=== PATIENT | female | born 1960 | race Caucasian/White ===

== ENCOUNTER 2018-09-03 12:49 | Day surgery (SDC) | payer OTHER ==
[~2018-09-03] VITALS: Ht 154.9 cm; Wt 65.3 kg
[~2018-09-03 12:49] MED LIST: ABILIFY10 MG PO; METFORMIN HCL1000 M1 PO; NICODERM CQ1 EAC1 TD; TRAZODONE HCL150 MG PO
--- NOTE | 2018-09-03 14:11 | NUR ---
09/03/18 1411 Jessica Villalta 89 PT ARRIVED IN PACU SLEEPY WITH NO C/O'S. ABD SOFT.
--- NOTE | 2018-09-05 09:22 | OR ---
[facility] [address] [place], [place] [address] Signed DATE OF OPERATION: 09/03/2018 SURGEON: Eusebia Bowen MD PREOPERATIVE DIAGNOSIS: Colon screening. POSTOPERATIVE DIAGNOSIS: Polyps x2 at 15 cm. PROCEDURE: Total colonoscopy to cecum with cold morcellation polypectomy x1 and cold snare polypectomy x1. ANESTHESIA: Intravenous sedation, fentanyl 100 mcg, Versed 6 mg. INDICATION: This 58-year-old white woman is a patient Dr. Rodriguez and is referred for screening colonoscopy. She has not had colonoscopy in the past. She is having no bleeding, diarrhea, or constipation. She does note a fair amount of flatulence and attributes this to lactose intolerance. She has no family history of colon cancer. She is admitted at this time to undergo colonoscopy. She understands the risks of bleeding, infection, and perforation. FINDINGS: The prep was good. Complete colonoscopy was undertaken to the cecum without problem. There were two polyps at 15 cm one sessile and about 8 mm in size, the other 4 mm in size. The larger excised with cold snare polypectomy technique, the smaller with cold morcellation technique. The remaining colon was normal. PROCEDURE IN DETAIL: The patient was brought to the endoscopy suite and placed in lateral decubitus position, given intravenous sedation to a point of slurred speech and nystagmus. Digital rectal examination was normal. An Olympus video colonoscope was passed in the rectum and manipulated throughout the colon ultimately intubating the cecum itself. The ileocecal valve and appendiceal orifice were normal. The scope was withdrawn from that point and examination undertaken showed no sign of abnormality until approximately 15 cm from the anal verge where rather Electronically Signed By: EUSEBIA BOWEN MD 09/05/18 0922 PATIENT NAME: CAROLINA COLMENARES OPERATIVE REPORT DATE OF : 64 REPORT #: [id number] PHYSICIAN: EUSEBIA BOWEN MD PCP: BLAISE RODRIGUEZ DO REPORT IS CONFIDENTIAL AND NOT TO BE RELEASED WITHOUT AUTHORIZATION [facility] [address] [place], [place] [address] Signed smooth sessile 8 mm polyp was noted. This was excised with cold snare polypectomy technique. Complete excision was accomplished without untoward bleeding. In the same general region at about 15 cm, there was another small polyp, probably hyperplastic. This was excised with cold morcellation technique. Further withdrawal of scope showed no other abnormality. Retroflexed view of the rectum was normal as well. The scope was removed and the patient was taken to recovery room in good condition. CONCLUDING DIAGNOSIS: Polyps x2 at 15 cm, both excised completely. PLAN: Recommend repeat colonoscopy in 5 years if either or both of the polyps has adenomatous features. If both are hyperplastic, can extend repeat colonoscopy to 10 years or sooner if symptoms should develop. MD MIRIAN Mendez/GWENDOLYN /[id number] cc: Blaise Rodriguez DO Copies: BLAISE RODRIGUEZ DO ~ Electronically Signed By: EUSEBIA BOWEN MD 03/01/17 922 PATIENT NAME: CAROLINA COLMENARES OPERATIVE REPORT DATE OF : 64 REPORT #: [id number] PHYSICIAN: EUSEBIA BOWEN MD PCP: BLAISE RODRIGUEZ DO REPORT IS CONFIDENTIAL AND NOT TO BE RELEASED WITHOUT AUTHORIZATION
== END 2018-09-03 14:50 | disposition home or self-care (01) ==
LOC: OPS 12:49 → DS 14:00 → OPS 14:00
PROVIDERS: Surgery
PROC: 0DBE8ZZ Excision of Large Intestine, Via Natural or Artificial Opening Endoscopic (ICD-10-PCS; 2018-09-03)
PROC: 0DBE8ZZ Excision of Large Intestine, Via Natural or Artificial Opening Endoscopic (ICD-10-PCS; principal; 2018-09-03 14:00)
DX: Z12.11 Encounter for screening for malignant neoplasm of colon (principal); K63.5 Polyp of colon; F32.9 Major depressive disorder, single episode, unspecified; G47.30 Sleep apnea, unspecified; F17.210 Nicotine dependence, cigarettes, uncomplicated; Z79.84 Long term (current) use of oral hypoglycemic drugs; Z79.899 Other long term (current) drug therapy
CPT/HCPCS: 99153; G0500; J2250; J3010; J7120

== ENCOUNTER 2023-01-12 16:48 | Emergency (ER) | payer OTHER ==
[~2023-01-12] VITALS: Ht 154.9 cm; Wt 56.5 kg
--- OUTSIDE RECORDS SUMMARY | ~2023-01-12 | XMS | Continuity of Care Document ---
Demographics + + + | Address | [address] | | | [place] [address] | + + + | Preferred Language | Unknown | + + + | Marital Status | Legally | + + + | Tenriism Affiliation | Unknown | + + + | Race | White | + + + | Ethnic Group | Unknown | + + + Author + + + | Author | [place] | + + + | Organization | [place] | + + + | Address | [address] | | | [place] [address] | + + + | Phone | | + + + Care Team Providers + + + + | Care Waiter/Waitress Dining Car Name | Role | Phone | + + + + Unavailable | Unavailable | + + + + Allergies and Intolerances + + + + + + | date | description | facility | reaction | severity | + + + + + + | (no date) | No Known | [facility] | (no reaction) | (no severity) | | | Allergies | | | | + + + + + + Encounters No information. Functional Status No information. Immunizations No information. Medications No information. Problems + + + + | date | description | facility | + + + + | 2022-10-27 09:54 | NICOTINE DEPENDENCE, | [facility] | | | UNSPECIFIED, UNCOMPLICATED | | + + + + | 2022-10-27 15:21 | NICOTINE DEPENDENCE, | [facility] | | | UNSPECIFIED, UNCOMP | | + + + + | 2022-10-27 15:21 | ENCNTR SCREEN FOR | [facility] | | | MALIGNANT NEOPLASM OF | | | | RESPIRATORY ORGANS | | + + + + | 2022-12-25 16:55 | BRADYCARDIA, UNSPECIFIED | [facility] | + + + + | 2022-12-25 17:00 | BRADYCARDIA, UNSPECIFIED | [facility] | + + + + Procedures No information. Results/Labs No information. Social History No information. Vital Signs No information."
--- OUTSIDE RECORDS SUMMARY | ~2023-01-12 | XMS | Continuity of Care Document ---
Demographics + + + | Address | [address] | | | [place] [address] | + + + | Preferred Language | Unknown | + + + | Marital Status | Legally | + + + | Sikhism Affiliation | Unknown | + + + | Race | White | + + + | Ethnic Group | Unknown | + + + Author + + + | Author | [facility] | + + + | Organization | [facility] | + + + | Address | [address] | | | [place] [address] | + + + | Phone | | + + + Care Team Providers + + + + | Care Affiliate Manager Name | Role | Phone | + [...]
[2023-01-12 17:44] VITALS: BP 00/00
== END 2023-01-12 17:44 | disposition left against medical advice (07) ==
LOC: ED 16:48
DX: Z71.89 Other specified counseling (principal); Z53.21 Procedure and treatment not carried out due to patient leaving prior to being seen by health care provider